=== PATIENT | female | born 1975 | race Caucasian/White ===

== ENCOUNTER 2018-11-16 21:30 | Emergency (ER) | payer MEDICAID, OTHER ==
[~2018-11-16] VITALS: Ht 154.9 cm; Wt 93.5 kg
[2018-11-16] MEDS ORDERED: APIX5TAB3 PO (23:54)
[2018-11-17 00:22] VITALS: BP 120/70
== END 2018-11-17 00:24 | disposition home or self-care (01) ==
LOC: ER 21:31
DX: I82.432 Acute embolism and thrombosis of left popliteal vein (principal); Z79.899 Other long term (current) drug therapy
CPT/HCPCS: 93971; 99284